=== PATIENT | male | born 1985 | race Caucasian/White ===

== ENCOUNTER 2021-01-25 21:29 | Emergency (ER) | payer SELFPAY ==
[~2021-01-25] VITALS: Ht 180.3 cm; Wt 88.6 kg
[2021-01-25 21:31] VITALS: BP 105/59
--- NOTE | 2021-01-25 21:46 | PHYS DOC ---
General Adult EDM: Chief Complaint: MULTIPLE COMPLAINTS HPI: HPI: Patient is a 35 year old male with no past medical history presents with a chief complaint of chest pain, dehydration and fatigue. Patient is a homeless male that is requesting food to eat. Patient states he has had symptoms for the last several days. He appears in no acute distress. Patient in addition to requesting food and something to drink patient is requesting a cab pass. Review of Systems: Review of Systems: Review of systems: Constitutional symptoms- No fever, no chills. Eyes- No Discharge, No Visual Loss Respiratory symptoms- No shortness of breath, No wheezing, No Dyspnea on Exertion Cardiovascular Systems; Positive chest pain, No Palpitations, No syncope Gastrointestinal symptoms: NO abdominal pain, no nausea, no vomiting or diarrhea. Genitourinary symptoms: No dysuria. Musculoskeletal symptoms: No back pain No extremity pain. NEUROLOGICAL Symptoms: No headache, no generalized weakness; No focal Weakness positive fatigue Skin: No rash. Heart Score: C/O Chest Pain: N/A Risk Factors: Risk Factors: DM, Current or recent (<one month) smoker, HTN, HLP, family history of CAD, obesity. Risk Scores: Score 0 - 3: 2.5% MACE over next 6 weeks - Discharge Home Score 4 - 6: 20.3% MACE over next 6 weeks - Admit for Clinical Observation Score 7 - 10: 72.7% MACE over next 6 weeks - Early Invasive Strategies Physical Exam: PE: Constitutional: Well developed, well nourished, no acute distress, non-toxic appearance. [] HENT: Normocephalic, atraumatic, bilateral external ears normal, oropharynx moist, no oral exudates, nose normal. [] Eyes: PERRLA, EOMI, conjunctiva normal, no discharge. [] Neck: Normal range of motion, no tenderness, supple, no stridor. [] Cardiovascular:Heart rate regular rhythm, no murmur [] Lungs & Thorax: Bilateral breath sounds clear to auscultation [] Abdomen: Bowel sounds normal, soft, no tenderness, no masses, no pulsatile masses. [] Skin: Warm, dry, no erythema, no rash. [] Back: No tenderness, no CVA tenderness. [] Extremities: No tenderness, no cyanosis, no clubbing, ROM intact, no edema. [] Neurologic: Alert and oriented X 3, normal motor function, normal sensory function, no focal deficits noted. [] Psychologic: Affect normal, judgement normal, mood normal. [] EKG: EKG: [] Performed at 2137 Rate 79 Normal sinus rhythm No ST elevation No ST depression No acute AK Radiology/Procedures: Radiology/Procedures: [] Course & Med Decision Making: Course & Med Decision Making Pertinent Labs and Imaging studies reviewed. (See chart for details) [] Patient was evaluated--and an EKG was performed and found to be normal. Based upon history of present illness and physical exam I performed no other kirt t. Patient ate and drank without any issues. Patient was discharged. Marcelino Disclaimer: Marcelino Disclaimer: This electronic medical record was generated, in whole or in part, using a voice recognition dictation system. DHIRAJ CORLEY I DO Jan 25, 2021 21:46
== END 2021-01-25 22:43 | disposition home or self-care (01) ==
LOC: ER 21:29
DX: E86.0 Dehydration (principal); R07.9 Chest pain, unspecified; R53.83 Other fatigue; Z59.0 Homelessness
CPT/HCPCS: 99281; 99283